=== PATIENT | male | born 2000 | race Caucasian/White ===

== ENCOUNTER → 2018-06-01 | Outpatient (CLI) | payer BC | LOC: COL.RAD 13:52 | DX: M54.5 Low back pain (principal) ==

== ENCOUNTER 2018-12-10 18:27 | Emergency (ER) | payer BC ==
[~2018-12-10] VITALS: Ht 193 cm; Wt 113.6 kg
[2018-12-10 18:33] VITALS: BP 137/87; TEMP 97.3
[2018-12-10] MEDS ORDERED: OMNICEF 300MG300 MG PO (19:57)
[2018-12-10] MEDS ORDERED: LEVAQUIN 750MG750 M1 PO (19:57)
[2018-12-10 20:05] VITALS: PULSE 89
== END 2018-12-10 20:05 | disposition home or self-care (01) ==
LOC: COL.ER 18:27
DX: S61.412A Laceration without foreign body of left hand, initial encounter (principal); X58.XXXA Exposure to other specified factors, initial encounter

== ENCOUNTER → 2018-12-21 | Outpatient (CLI) | payer BC ==
[~2018-12-21] MED LIST: LEVAQUIN 750MG750 M1 PO; OMNICEF 300MG300 MG PO
[2018-12-21 18:30] VITALS: BP 133/70; PULSE 86; TEMP 97.2
== END ==
LOC: COL.ER 18:25
DX: S61.411D Laceration without foreign body of right hand, subsequent encounter (principal); X58.XXXD Exposure to other specified factors, subsequent encounter